=== PATIENT | female | born 1955 | race Caucasian/White ===

== ENCOUNTER 2023-08-16 14:05 | Outpatient (CLI) | payer OTHER, SELFPAY ==
--- NOTE | ~2023-08-16 | CT_ITS ---
EXAMINATION: CT lung screening DATE: 08/16/2023 14:32 INDICATION: Personal history of tobacco dependence TECHNIQUE: Computed tomography (CT) of the chest was performed without intravenous contrast. The dose -length product was 80.60 mGy-cm. Automated exposure control and iterative reconstruction technique w ere employed. COMPARISON: None FINDINGS: Heart size normal. No significant pleural or pericardial effusion. There is atherosclerosis . No thoracic lymphadenopathy. There are cholecystectomy clips. The upper abdomen is otherwise unrema rkable. No endobronchial lesions. No focal consolidation. No pneumothorax. Evaluation of the lung bas es limited due to motion artifact. No suspicious pulmonary nodules or masses. Elevated left diaphragm . Moderate thoracic spondylosis. No acute osseous abnormality. IMPRESSION: 1. Lung-RADS category 1: Negative. Continue annual screening with noncontrast low-dose chest CT in 12 months. Reviewed, dictated and finalized at location A. IMPRESSION: 1. Lung-RADS category 1: Negative. Continue annual screening with noncontrast l ow-dose chest CT in 12 months.
== END 2023-08-16 14:06 | disposition home or self-care (01) ==
LOC: ANHIMG 14:15
PROVIDERS: PCP Internal Medicine; Visit Provider Internal Medicine
DX: Z12.2 Encounter for screening for malignant neoplasm of respiratory organs (principal); Z87.891 Personal history of nicotine dependence
CPT/HCPCS: 71271

== ENCOUNTER 2024-10-13 14:31 | Outpatient (CLI) | payer OTHER, SELFPAY ==
--- NOTE | ~2024-10-13 | XR_ITS ---
EXAM: XR femur LT min 2V DATE: 10/13/2024 15:07 HISTORY: PAIN IN LEFT FEMUR . COMPARISON: None available. FINDINGS: Normal mineralization. No fracture or dislocation. No lytic or blastic lesion. Mild degene rative change in the left hip and left knee. Lumbar facet arthropathy. No erosion or periosteal pepper e. Soft tissues within normal limits. IMPRESSION: No acute osseous finding in the left femur. Reviewed, dictated and finalized at location K.
--- OUTSIDE RECORDS SUMMARY | 2024-10-13 14:36 | XMS_ITS | Patient Health Record ---
Author Organization [facility] Address [address] [place] [address] Care Team Providers Care Pick Pulling Machine Operator Name Role Phone Roman Bennett Unavailable [phone] REASON FOR REFERRAL No Information PROBLEMS Problem Type ICD Code Onset Dates Problem Status W/U Status Risk SNOMED Code Notes Problem Anxiety disorder, unspecified (F41.9) Active confirmed Anxiety disorde r (169810087) Problem Essential (primary) hypertension (I10) Active confirmed Essential hypertension (78765057) Problem Chronic fatigue, unspecified (R53.82) Active confirmed Chronic fatigue syndrome (disorder) (47569823) Problem Other proteinuria (R80.8) Active confirmed Proteinuria (27123486) Problem Chronic kidney disease, stage 3 unspecified (N18.30) Active confirmed Chronic kidney disease stage 3 (disorder) (175859808) Encounters Encounter Location Date Provider Diagnosis [facility] [address] [place] [address] 11/02/2023 Roman Bennett Chronic kidney disease, stage 3 unspecified N18.30 ; Anxiety disorder, unspecified F41.9 ; Chronic fatigue, unspecified R53.82 ; Essential (primary) hypertension I10 and Other proteinuria R80.8 [facility] [address] [place] [address] 02/27/2024 Roman Bennett Chronic kidney disease, stage 3 unspecified N18.30 ; Anxiety disorder, unspecified F41.9 ; Chronic fatigue, unspecified R53.82 ; Essential (primary) hypertension I10 and Other proteinuria R80.8 [facility] [address] [place] [address] 03/19/2024 Roman Bennett [facility] [address] [place] [address] 11/02/2023 Roman Bennett ASSESSMENTS Encounter Date Diagnosis Assessment Notes Treatment Notes Treatment Clinical Notes Section Notes 11/02/2023 Chronic kidney disease, stage 3 unspecified (ICD-10 - N18.30) 02/27/2024 Chronic kidney disease, stage 3 unspecified (ICD-10 - N18.30) 02/27/2024 Anxiety disorder, unspecified (ICD-10 - F41.9) 11/02/2023 Anxiety disorder, unspecified (ICD-10 - F41.9) 11/02/2023 Chronic fatigue, unspecified (ICD-10 - R53.82) 02/27/2024 Chronic fatigue, unspecified (ICD-10 - R53.82) 02/27/2024 Essential (primary) hypertension (ICD-10 - I10) 11/02/2023 Essential (primary) hypertension (ICD-10 - I10) 11/02/2023 Other proteinuria (ICD-10 - R80.8) 02/27/2024 Other proteinuria (ICD-10 - R80.8) PLAN OF TREATMENT Next Appt Details Provider Name:Roman Bennett , 11/14/2024 01:15:00 PM, [address], [facility] [address], [place], [address],
--- OUTSIDE RECORDS SUMMARY | 2024-10-13 14:36 | XMS_ITS ---
Author Organization [facility] Address [address] [place] [address] Care Team Providers Care Construction Safety Consultant Name Role Phone Donald Roman Unavailable [phone] Encounters Encounter Location Date Provider Diagnosis [facility] [address] [facility] [address] [place] [address] 02/27/2024 Roman Bennett Chronic kidney disease, stage 3 unspecified N18.30 ; Anxiety disorder, unspecified F41.9 ; Chronic fatigue, unspecified R53.82 ; Essential (primary) hypertension I10 and Other proteinuria R80.8 ASSESSMENTS Encounter Date Diagnosis Assessment Notes Treatment Notes Treatment Clinical Notes Section Notes 02/27/2024 Chronic kidney disease, stage 3 unspecified (ICD-10 - N18.30) 02/27/2024 Anxiety disorder, unspecified (ICD-10 - F41.9) 02/27/2024 Chronic fatigue, unspecified (ICD-10 - R53.82) 02/27/2024 Essential (primary) hypertension (ICD-10 - I10) 02/27/2024 Other proteinuria (ICD-10 - R80.8) PLAN OF TREATMENT Next Appt Details Provider Name:Roman Donald , 11/14/2024 01:15:00 PM, [address] [facility], [address], [place], [address], Progress Notes * Heaven MONTOYADOB:1955 ([age] yo F)Acc No.[id number]:02/27/2024 Progress Notes Patient: Heaven MONTOYA Provider: MD KARAN, F.A.C.P, F.A.S.N. :1955 Age:68 Y Sex:Female Date:02/27/2024 Address:[address] [place] [address] [address], [place] [address] Subjective: * Chief Complaints: * * Medical History: Objective: Assessment: * Assessment: 1. Chronic kidney disease, stage 3 unspecified - N18.30 (Primary) 2. Anxiety disorder, unspecified - F41.9 3. Chronic fatigue, unspecified - R53.82 4. Essential (primary) hypertension - I10 5. Other proteinuria - R80.8 Plan: * Treatment: * Billing Information: * Visit Code: * Procedure Codes: * Sign off status: Pending * Provider: MD KARAN, F.A.C.P, F.A.S.N. Date: 02/27/2024
--- OUTSIDE RECORDS SUMMARY | 2024-10-13 14:36 | XMS_ITS ---
Author Organization [facility] Address [address] [place] [address] [place] [address] Care Team Providers Care Drawer In Plain Loom Name Role Phone Roman Bennett Unavailable [phone] MEDICATIONS Medication SIG (Take, Route, Frequency, Duration) Notes Start Date End Date Status Calcitriol 0.25 MCG 1 capsule Orally Onc e a day for 90 day(s) 11/02/2023 07/28/2024 Active Ergocalciferol 1.25 MG (35487 UT) 1 capsule Orally Once a week for 90 day(s) 11/02/2023 07/28/2024 Active Encounters Encounter Location Date Provider Diagnosis [facility] [address] [facility] [address] [place] [address] 11/02/2023 Roman Bennett PLAN OF TREATMENT Medication Medication Name Sig Start Date Stop Date Notes Calcitriol 0.25 MCG 1 capsule Orally Onc e a day for 90 day(s) 11/02/2023 07/28/2024 Ergocalciferol 1.25 MG (5000 0 UT) 1 capsule Orally Once a week for 90 day(s) 11/02/2023 07/28/2024 Next Appt Details Provider Name:Roman Bennett , 11/14/2024 01:15:00 PM, [address] [facility], [facility] [address], [place], [address], Progress Notes * Heaven MONTOYADOB:1955 ([age] yo F)Acc No.[id number]:11/02/2023 Patient: Heaven MONTOYA :1955 Age:68 Y Sex:Female Address:[address], [place] [address] * Refills Start Ergocalciferol Capsule, 1.25 MG (37539 UT), Orally, 13, 1 capsule, Once a week, 90 day(s), Refills=2 Start Calcitriol Capsule, 0.25 MCG, Orally, 90 Capsule, 1 capsule, Once a day, 90 day(s), Refills=2 * true * Date:
--- OUTSIDE RECORDS SUMMARY | 2024-10-13 14:37 | XMS_ITS ---
Author Organization [facility] Address [address] [facility] [address] [facility] [address] [place] [address] Care Team Providers Care Customs Director Name Role Phone Roman Bennett Unavailable [phone] Encounters Encounter Location Date Provider Diagnosis [facility] [address] [facility] [address] [place] [address] 03/19/2024 Roman Bennett PLAN OF TREATMENT Next Appt Details Provider Name:Roman Donald , 11/14/2024 01:15:00 PM, [address] [facility], [facility] [place] [address], [place], [address], Progress Notes * Heaven MONTOYADOB:1955 ([age] yo F)Acc No.[id number]:03/19/2024 Progress Notes Patient: Heaven MONTOYA Provider: MD KARAN, Jania.Nikole.C.P, F.A.S.N. :1955 Age:68 Y Sex:Female Date:03/19/2024 Address:[address] [place] [address] [address], [place] [address] Subjective: * Chief Complaints: * * Medical History: Objective: Assessment: Plan: * Treatment: * Billing Information: * Visit Code: * Procedure Codes: * Sign off status: Pending * Provider: MD KARAN, Jania.Nikole.C.P, F.A.S.N. Date: 03/19/2024
--- OUTSIDE RECORDS SUMMARY | 2024-10-13 14:37 | XMS_ITS | Data Portability ---
Author Organization [facility] Dykes Address [address] [place] [address] Assessment Encounter Date Assessment Date Assessment LastModified by Organization Details LastModified Time 10/23/2023 10/23/2023 Discussed with patients family that since she is over [age] and has not had a PAP since in her twenties and it may be traumatic for her, it is probably not necessary to do any further PAPs. Will discuss further at follow up. [email or web address] Not available 10/26/2023 09:03:17 01/22/2024 01/22/2024 Does not need to continue aspirin. No history of heart disease or PVD. [email or web address] Not available 01/22/2024 18:16:05 Plan of Treatment Reminders Order Date Submit Date Provider Last Modified By Organization Details Last Modified Time Details Appointments ANY 2024 11:30A M Roxanne Anderson MD Not available Not available Not available ANY 2024 11:00A M Roxanne Anderson MD Not available Not available Not available Lab TSH, ultra-sen sitive, serum 2024 025 [place] [facility], [address] [facility], [address], [place], [address], 10/09/2024 09:55:27 influenza virus A + B + SARS-CoV- 2 (COVID19) Ag panel, rapid IA, upper respirato ry specimen 2024 025 [email or web address] In-Office Order, Internal Use Only DO Not Attach Compendium DO Not Attach Compendium, Do Not Delete/merge, [id number] 07/14/2024 18:59:47 lipid panel, serum 2023 024 [facility], [address], [place], [address], 10/07/2024 09:29:28 TSH, ultra-sen sitive, serum 2023 024 [facility], [address], [address], [place], [address], 07/11/2024 11:13:57 noninvasi ve colorecta l cancer DNA + occult blood screening , QL, stool 2023 024 [facility] (Cologuard Orders Only), [address], [address], [place], [address], 10/26/2023 09:04:57 CMP, serum or plasma 2023 024 [facility], [address], [address], [place], [address], 07/08/2024 14:08:31 lipid panel, serum 2023 024 [facility], [address], [place], [address], 07/08/2024 14:08:31 CBC 2023 024 [facility], [address], [address], [place], [address], 07/08/2024 14:08:31 albumin/c reatinine , mass ratio, urine 2023 024 [facility], [address], [address], [place], [address], 07/08/2024 14:08:31 Referral None recorded. Procedures None recorded. Surgeries None recorded. Imaging XR, femur 2024 025 [facility], [address] [place], [address], 10/08/2024 13:23:55 LDCT, chest, for lung cancer screening 2024 025 [facility], [address] [place], [address], 10/10/2024 08:43:22 XR, hip, unilatera l 2023 024 [facility], [address] [place], [address], 03/17/2024 15:59:20 home sleep study 2023 024 [facility], [address] [place], [address], 01/31/2024 09:13:26 Medication Orders Debrox 6.5 % ear drops 2024 025 [facility] #98393, [address], [place], [place], [id number], 10/08/2024 12:11:56 Zithromax Z-Jose G 250 mg tablet 2024 025 [facility] #48373, [address], [place], [place], [id number], 10/08/2024 12:11:54 citalopra m 40 mg tablet 2024 025 [facility] #90570, [address], [place], [place], [id number], 06/30/2024 18:50:33 losartan 50 mg tablet 2024 025 [facility] #12446, [address], [place], [place], [id number], 06/30/2024 18:50:33 Symbicort 160 mcg-4.5 mcg/actua tion HFA aerosol inhaler 2024 025 [facility] #67189, [address], [place], [place], [id number], 06/30/2024 18:50:32 albuterol sulfate HFA 90 mcg/actua tion aerosol inhaler 2024 025 [facility] #66180, [address], [place], [place], [id number], 06/30/2024 18:52:32 pravastat in 40 mg tablet 2024 025 [facility] #12214, [address], [place], [place], [id number], 07/14/2024 12:20:53 fenofibra te 54 mg tablet 2024 025 [facility] #82515, [address], [place], [place], [id number], 06/30/2024 18:52:33 fenofibra te 54 mg tablet 2023 024 [facility] #58908, [address], [place], [place], [id number], 01/22/2024 18:24:36 pravastat in 40 mg tablet 2023 024 [email or web address] #40637, [address], [place], [place], [id number], 07/14/2024 12:20:34 albuterol sulfate HFA 90 mcg/actua tion aerosol inhaler 2023 024 [facility] #82009, [address], [place], [place], [id number], 01/22/2024 18:24:37 Symbicort 160 mcg-4.5 mcg/actua tion HFA aerosol inhaler 2023 024 [facility] #48587, [address], [place], [place], [id number], 01/22/2024 18:24:37 losartan 50 mg tablet 2023 [facility] #71971, [address], [place], [place], [id number], 01/22/2024 18:24:40 citalopra m 40 mg tablet 2023 024 [facility] #51917, [address], [place], [place], [id number], 01/22/2024 18:24:39 levothyro xine 137 mcg tablet 2023 024 [facility] #30393, [address], [place], [place], [id number], 01/22/2024 18:24:36 albuterol sulfate 2.5 mg/3 mL (0.083 %) solution for nebulizat ion 2023 024 [facility] #96061, [address], [place], [place], [id number], 10/26/2023 09:04:53 albuterol sulfate HFA 90 mcg/actua tion aerosol inhaler 2023 024 [facility] #52126, [address], [id number], 10/26/2023 09:04:54 Symbicort 160 mcg-4.5 mcg/actua tion HFA aerosol inhaler 2023 024 [facility] #24146, [address], [place], [place], [id number], 10/26/2023 09:04:52 fenofibra te 54 mg tablet 2023 024 [facility] #60272, [address], [place], [place], [id number], 10/26/2023 09:04:50 losartan 50 mg tablet 2023 024 [facility] #05870, [address], [place], [place], [id number], 10/26/2023 09:04:54 citalopra m 40 mg tablet 2023 024 [facility] #78099, [address], [place], [place], [id number], 10/26/2023 09:04:53 Patient TargetsNo targets recorded. Patient Instructions Encounter Date Encounter Id Patient Instructions Last Modified By Organization Details Last Modified Time 10/23/2023 [id number] A healthy lifestyle: care instructions monalisa Not available 10/26/2023 09:04:41 Reason for Referral None Reported. Results Created Date Observation Date Name Description Value Unit Range Abnormal Flag Note LastModifiedBy Organization Detail LastModifiedTime 07/08/19 25 07/08/2024 LIPID PANEL cholesterol, total 199 mg/dL 100-19 9 Not Available [facility] [address] [place], [address], 2024 06:20:28 07/08/19 25 07/08/2024 LIPID PANEL triglyceride s 184 mg/dL 0-149 above high normal Not Available [facility] [address] [place], [address], 2024 06:20:28 07/08/19 25 07/08/2024 LIPID PANEL HDL cholesterol 46 mg/dL 40-999 Not Available [facility] [address] [place], [address], 2024 06:20:28 07/08/19 25 07/08/2024 LIPID PANEL VLDL cholesterol any 37 mg/dL 5-40 Not Available [facility] [address] [place], [address], 2024 06:20:28 07/08/19 25 07/08/2024 LIPID PANEL LDL chol calc (nih) 142 mg/dL 0-99 above high normal Not Available [facility] [address] [place], [address], 2024 06:20:28 07/08/19 25 07/08/2024 COMP. METAB OLIC PANEL (14) glucose 88 mg/dL 70-99 Not Available [facility] [address] [place], [address], 2024 06:20:29 07/08/19 25 07/08/2024 COMP. METAB OLIC PANEL (14) BUN 16 mg/dL 8-27 Not Available [facility] [address] [place], [address], 2024 06:20:29 07/08/19 25 07/08/2024 COMP. METAB OLIC PANEL (14) creatinine 1.04 mg/dL 0.76-1 .27 Not Available [facility] [address] [place], [address], 2024 06:20:29 07/08/19 25 07/08/2024 COMP. METAB OLIC PANEL (14) eGFR 59 >=60 below low normal Units for eGFR value s are mL/mi n/1.7 3 The eGFR Calcu latio n has not been valid ated for patie nts under the age of 18. If test resul ts are displ ayed for a patie nt under the age of 18, disre khushbu that value . Not Available [facility] [address] [place] [address], [address], 2024 06:20:29 07/08/19 25 07/08/2024 COMP. METAB OLIC PANEL (14) BUN/creatini ne ratio 15 10-28 Not Available [facility] [address] [place] [address], [address], 2024 06:20:29 07/08/19 25 07/08/2024 COMP. METAB OLIC PANEL (14) sodium 139 mmol/ L 134-14 4 Not Available [facility] [address] [place] [address], [address], 2024 06:20:29 07/08/19 25 07/08/2024 COMP. METAB OLIC PANEL (14) potassium 4.9 mmol/ L 3.5-5. 2 Not Available [facility] [address] [place] [address], [address], 2024 06:20:29 07/08/19 25 07/08/2024 COMP. METAB OLIC PANEL (14) chloride 102 mmol/ L 96-106 Not Available [facility] [address] [place] [address], [address], 2024 06:20:29 07/08/19 25 07/08/2024 COMP. METAB OLIC PANEL (14) carbon dioxide, total 27 mmol/ L 20-29 Not Available [facility] [address] [place] [address], [address], 2024 06:20:29 07/08/19 25 07/08/2024 COMP. METAB OLIC PANEL (14) calcium 9.7 mg/dL 8.7-10 .3 Not Available [facility] [address] [place], [address], 2024 06:20:29 07/08/19 25 07/08/2024 COMP. METAB OLIC PANEL (14) protein, total 6.7 g/dL 6.0-8. 5 Not Available [facility] [address] [place], [address], 2024 06:20:29 07/08/19 25 07/08/2024 COMP. METAB OLIC PANEL (14) albumin 4.2 g/dL 3.8-4. 8 Not Available [facility] [address] [place], [address], 2024 06:20:29 07/08/19 25 07/08/2024 COMP. METAB OLIC PANEL (14) globulin, total 2.5 g/dL 1.5-4. 5 Not Available [facility] [address] [place], [address], 2024 06:20:29 07/08/19 25 07/08/2024 COMP. METAB OLIC PANEL (14) A/G ratio 2.0 1.2-2. 2 Not Available [facility] [address] [place], [address], 2024 06:20:29 07/08/19 25 07/08/2024 COMP. METAB OLIC PANEL (14) bilirubin, total 0.5 mg/dL 0.0-1. 2 Not Available [facility] [address] [place], [address], 2024 06:20:29 07/08/19 25 07/08/2024 COMP. METAB OLIC PANEL (14) alkaline phosphatase 63 IU/L 44-121 Not Available [facility] [address] [place], [address], 2024 06:20:29 07/08/19 25 07/08/2024 COMP. METAB OLIC PANEL (14) AST (SGOT) 16 IU/L 0-40 Not Available [facility] [address] [place], [address], 2024 06:20:29 07/08/19 25 07/08/2024 COMP. METAB OLIC PANEL (14) ALT (SGPT) 10 IU/L 0-32 Not Available [facility] [address] [place], [address], 2024 06:20:29 07/08/19 25 2024 HEMOG LOBIN A1C hemoglobin A1C 5.7 % 4.8-5. 6 above high normal Predi abete s: 5.7 - 6.4 Diabe pancho: >6.4 Glyce nirmala contr ol for adult s with diabe pancho: <7.0 Not Available [facility] ([facility]) [address] [place], [address], 2024 07:15:00 07/14/19 25 07/15/2024 ALBUM IN/CR EATIN INE RATIO ,URIN E creatinine, urine 66.3 mg/dL notest ab. Not Available [facility] ([facility]) [address] [place], [address], 07/15/2024 11:14:27 07/14/19 25 07/15/2024 ALBUM IN/CR EATIN INE RATIO ,URIN E albumin, urine <3.0 ug/mL notest ab. Not Available [facility] ([facility]) [address] [place], [address], 07/15/2024 11:14:27 07/14/19 25 07/15/2024 ALBUM IN/CR EATIN INE RATIO ,URIN E alb/creat ratio <5 Chanell l: 0 - 29 Moder ately incre ased: 30 - 300 Sever austen incre ased: >300 Not Available [facility] ([facility]) [address] [facility], [place], [address], 07/15/2024 11:14:27 07/14/19 25 07/14/2024 influ eileen virus A + B + SARS- CoV-2 (COVI D19) Ag panel , rapid IA, upper respi rator y speci men Flu A negati ve Not Available In-Office Order Internal Use Only DO Not Attach Compendium DO Not Attach Compendium, Do Not Delete/merge, [id number] 07/14/2024 15:33:28 07/14/19 25 07/14/2024 influ eileen virus A + B + SARS- CoV-2 (COVI D19) Ag panel , rapid IA, upper respi rator y speci men Flu B negati ve Not Available In-Office Order Internal Use Only DO Not Attach Compendium DO Not Attach Compendium, Do Not Delete/merge, [id number] 07/14/2024 15:33:28 07/14/19 25 07/14/2024 influ eileen virus A + B + SARS- CoV-2 (COVI D19) Ag panel , rapid IA, upper respi rator y speci men Rapid SARS CoV 2 Ag, QL IA, respiratory specimen negati ve Not Available In-Office Order Internal Use Only DO Not Attach Compendium DO Not Attach Compendium, Do Not Delete/merge, [id number] 07/14/2024 15:33:28 01/24/20 24 01/22/2024 home sleep study No observ ation record ed. [facility] [address] [place], [address], 01/25/2024 13:43:43 03/17/20 24 03/17/2024 XR, hip, unila teral No observ ation record ed. [facility] [address] [place], [address], 04/07/2024 16:07:15 05/19/20 24 05/14/2024 home sleep study No observ ation record ed. [facility] [address] [place], [address], 05/27/2024 12:24:20 Result Notes None recorded. Problems Name Problem SNOMED Code Status Onset Date Resolution Date Notes Provider Name and Address Organization Details Recorded Time Administra tion of pneumococc al vaccine Active 2017 Not Available [facility] 4 14:51:11 Hand pain 82417218 Active 2017 Not Available [facility] 4 14:51:11 Serum creatinine outside reference range 233908909 Active 2018 Not Available [facility] 4 14:51:11 Multiple skin tags 775641886 Active 2018 Not Available [facility] 4 14:51:11 Leukocytes in urine 491515677 Active 2018 Not Available [facility] 4 14:51:11 Acute urinary tract infection 085780491 Active 2018 Not Available [facility] 4 14:51:11 Dysuria 43274355 Active 2019 Not Available [facility] 4 14:51:11 Neck pain 17461450 Active 2021 Not Available [facility] 4 14:51:11 Screening for malignant neoplasm of colon Active 2021 Not Available [facility] 4 14:51:11 Hypothyroi dism 53056659 Active Not Available [facility] 4 14:51:11 Hyperlipid emia 45117898 Active Not Available [facility] 4 14:51:11 Pain of shoulder region 14883647 Active Not Available [facility] 4 14:51:11 Vitamin D deficiency 07312445 Active Not Available [facility] 4 14:51:11 Tobacco user 611499646 Active Not Available [facility] 4 14:51:11 Disorder of vitamin B12 228214085 Active Not Available [facility] 4 14:51:11 Chronic obstructiv e pulmonary disease 37996479 Active Not Available [facility] 4 14:51:11 Urinary incontinen ce 901083162 Active Not Available [facility] 4 14:51:11 Essential hypertensi on 30014994 Active Not Available [facility] 4 14:51:11 Morphea 698281977 Active Not Available [facility] 4 14:51:11 Depressive disorder 13445019 Active Not Available [facility] 4 14:51:11 Impacted cerumen in right ear 0684242462235 103 Active 2016 Not Available [facility] 4 14:51:11 Administra tion of influenza vaccine Active 2016 Not Available [facility] 4 14:51:12 Acute bronchitis 42049459 Active 2016 Not Available [facility] 4 14:51:11 Otitis media 16324419 Active 2016 Not Available [facility] 4 14:51:11 Impacted cerumen in left ear 2573153474484 101 Active 2016 Not Available [facility] 4 14:51:11 Problem Notes None recorded. Procedures Surgical History None recorded. Imaging Results Imaging Date Name Status LastModified by Organiz ation Details LastModified Time 01/22/2024 home sleep study completed [facility] [address] [place], [address], 01/25/2024 13:43:43 03/17/2024 XR, hip, unilateral completed [facility] [address] [place], [address], 04/07/2024 16:07:15 05/14/2024 home sleep study completed [facility] [address] [place], [address], 05/27/2024 12:24:20 Procedure Notes None recorded. Medical Equipment None Reported. Allergies No known drug allergies Medications Name Sig Start Date Stop Date Status Note LastModified by Organization Details LastModified Time losartan 50 mg tablet TAKE 1 TABLET BY MOUTH EVERY DAY IN THE MORNING active Not Available Not Available No t Available cyclobenz aprine 10 mg tablet TAKE 1 TABLET BY MOUTH EVERY DAY AT BEDTIME 10/22 completed Not Available Not Available Not Available amoxicill in 500 mg capsule Take 1 capsule every 8 hours by oral route for 10 days. 01/03 completed Not Available Not Available Not Available promethaz ine-DM 6.25 mg-15 mg/5 mL oral syrup Take 5 mL 3 times a day by oral route as needed for 10 days. 08/16 completed Not Available Not Available Not Available levothyro xine 137 mcg tablet TAKE 1 TABLET BY MOUTH EVERY DAY active Not Available Not Available No t Available albuterol sulfate 2.5 mg/3 mL (0.083 %) solution for nebulizat ion USE 3 ML VIA NEBULIZE R THREE TIMES DAILY DIRECTED active Not Available Not Available No t Available citalopra m 40 mg tablet TAKE 1 TABLET BY MOUTH EVERY DAY active Not Available Not Available No t Available azithromy zoey 250 mg tablet TAKE 2 TABLETS BY MOUTH FOR 1 DAY THEN TAKE 1 TABLET BY MOUTH EVERY DAY FOR 4 DAYS 10/08 completed Not Available Not Available Not Available pravastat in 40 mg tablet TAKE 1 TABLET BY MOUTH EVERY DAY AT BEDTIME 07/14 completed increase d to 80mg Not Available Not Available Not Available fluconazo le 150 mg tablet Take 1 tablet 3 times a week by oral route for 7 days. 08/16 completed Not Available Not Available Not Available tretinoin 0.025 % topical cream 10/08 completed Not Available Not Available Not Available Debrox 6.5 % ear drops INSTILL 5 DROPS INTO AFFECTED EAR(S) BY OTIC ROUTE 2 TIMES PER DAY for a week 10/08 completed Not Available Not Available Not Available ciproflox acin 500 mg tablet Take 1 tablet every 12 hours by oral route for 10 days. 01/03 completed Not Available Not Available Not Available tramadol 50 mg tablet Take 1 tablet every day by oral route at bedtime for 30 days. 11/27 completed Not Available Not Available Not Available triamcino lone acetonide 0.1 % topical cream 11/27 completed Not Available Not Available Not Available amoxicill in 500 mg tablet Take 2 tablets twice a day by oral route for 10 days. 04/17 completed Not Available Not Available Not Available pravastat in 80 mg tablet TAKE 1 TABLET BY MOUTH EVERY DAY active Not Available Not Available No t Available baclofen 10 mg tablet Take 1 tablet 3 times a day by oral route as needed for 30 days. 03/31 completed Not Available Not Available Not Available levothyro xine 150 mcg tablet TAKE 1 TABLET BY MOUTH EVERY DAY 03/21 completed Not Available Not Available Not Available omeprazol e 20 mg capsule,d elayed release TAKE 1 CAPSULE BY MOUTH EVERY DAY active Not Available Not Available No t Available ergocalci ferol (vitamin D2) 1,250 mcg (50,000 unit) capsule TAKE 1 CAPSULE BY MOUTH 1 TIME A WEEK active Not Available Not Available No t Available albuterol sulfate HFA 90 mcg/actua tion aerosol inhaler INHALE 2 PUFFS BY MOUTH FOUR TIMES DAILY NEEDED active Not Available Not Available No t Available calcitrio l 0.25 mcg capsule TAKE 1 CAPSULE BY MOUTH DAILY active Not Available Not Available No t Available naproxen 500 mg tablet Take 1 tablet twice a day by oral route with meals for 30 days. 03/31 completed kidney impairme nt Not Available Not Available Not Available fenofibra te 160 mg tablet TAKE 1 TABLET BY MOUTH EVERY MORNING active Not Available Not Available No t Available Fish Oil active Not Available Not Avai lable Not Available Baby Aspirin 01/21 completed Not Available Not Available Not Available Symbicort 160 mcg-4.5 mcg/actua tion HFA aerosol inhaler INHALE 2 PUFFS BY MOUTH TWICE DAILY DIRECTED active Not Available Not Available No t Available diclofena c 1 % topical gel APPLY 2 GRAMS TO THE AFFECTED AREA FOUR TIMES DAILY 10/22 completed Not Available Not Available Not Available fenofibra te 54 mg tablet TAKE 1 TABLET BY MOUTH EVERY DAY active Not Available Not Available No t Available ProChambe r USE DIRECTED active Not Available Not Available No t Available vitamin D3 1,250 mcg (50,000 unit)-vit boothe K2 200 mcg capsule Take by oral route. 01/21 completed Not Available Not Available Not Available Flowflex COVID-19 Antigen Home Test kit TEST DIRECTED TODAY 08/19 completed Not Available Not Available Not Available Vitals Date Recorded Body height Body temperature Body mass index (BMI) Body weight Oxygen saturation Oxygen saturation in Arterial blood by Pulse oximetry Heart rate Respiratory rate Systolic blood pressure Diastolic blood pressure Provider Name and Address Organization Details Last Updated DateTime 4 168.91 cm 98.1 [degF] 25.9 kg/m2 25886.5 6 g 97 % 97 % 68 /min 16 /min 118 mm[Hg] 70 mm[Hg] Osiris Gray MA [facility] 4 15:54:20 Date Recorded Body height Body mass index (BMI) Body weight Oxygen saturation Oxygen saturation in Arterial blood by Pulse oximetry Heart rate Systolic blood pressure Diastolic blood pressure Provider Name and Address Organization Details Last Updated DateTime 4 168.91 cm 25.9 kg/m2 38222.5 6 g 98 % 98 % 71 /min 118 mm[Hg] 70 mm[Hg] Osiris Gray MA [facility] 4 15:03:18 Date Recorded Body height Body mass index (BMI) Body weight Body temperature Oxygen saturation Oxygen saturation in Arterial blood by Pulse oximetry Heart rate Systolic blood pressure Diastolic blood pressure Provider Name and Address Organization Details Last Updated DateTime 5 168.91 cm 25.9 kg/m2 35513.5 6 g 98.4 [degF] 99 % 99 % 72 /min 118 mm[Hg] 72 mm[Hg] Osiris Gray MA [facility] 5 12:13:10 Date Recorded Body height Body temperature Oxygen saturation Oxygen saturation in Arterial blood by Pulse oximetry Provider Name and Address Organization Details Last Updated DateTime 07/14/2024 168.91 cm 98.4 [degF] 96 % 96 % Monisha Field LPN [facility] 5 15:07:59 Date Recorded Body height Body mass index (BMI) Body weight Oxygen saturation Oxygen saturation in Arterial blood by Pulse oximetry Heart rate Body temperature Systolic blood pressure Diastolic blood pressure Provider Name and Address Organization Details Last Updated DateTime 5 168.91 cm 25.9 kg/m2 91056.5 6 g 98 % 98 % 71 /min 98.4 [degF] 118 mm[Hg] 70 mm[Hg] Osiris Gray MA [facility] 5 12:21:09 Social History Question Answer Notes LastModified by Organizat ion Details LastModified Time Tobacco Smoking Status Current Every Day Smoker cigarettes -- pack a day Ludwig Garcia MA null, [place] [facility] 09/03/2014 12:17:08 Are You Blind Or Do You Have Difficulty Seeing? No Information not available 03/08/2021 What Is Your Level Of Caffeine Consumption? Heavy Information not available 03/08/2021 Are You Deaf Or Do You Have Serious Difficulty Hearing? No Information not available 03/08/2021 What Type Of Diet Are You Following? REGULAR Information not available 03/08/2021 Are There Any Guns Present In Your Home? No Information not available 03/08/2021 What Was The Date Of Your Most Recent Tobacco Screening? 10/08/2024 Information not available 10/08/2024 How Many Children Do You Have? 1 Information not available 03/08/2021 What Is Your Relationship Status? Information not available 03/08/2021 Do You Use Your Seat Belt Or Car Seat Routinely? Yes Information not available 03/08/2021 Do You Have Smoke And Carbon Monoxide Detectors In Your Home? Yes Information not available 03/08/2021 Are You Passively Exposed To Smoke? Yes Information not available 03/08/2021 How Much Tobacco Do You Smoke? 1 PPD [email or web address] Information not available 02/12/2018 Has Tobacco Cessation Counseling Been Provided? Yes Information not available 05/08/2022 On What Date Was Tobacco Cessation Counseling Provided? 10/08/2024 Information not available 10/08/2024 How Many Years Have You Smoked Tobacco? 44 [email or web address] Information not available 09/03/2014 Sex: Female Functional Status Question Answer Note LastModified by Organization D etails LastModified Time What is your level of alcohol consumption? None Information not available 03/08/2021 Are you currently employed? No Information not available 03/08/2021 Are you able to care for yourself? Yes Information n ot available 03/08/2021 What is your exercise level? None Information not available 03/08/2021 Mental Status Question Answer Note LastModified by Organization D etails LastModified Time Do you feel stressed (tense, restless, nervous, or anxious, or unable to sleep at night)? [id number] [email or web address] Information not available 03/21/2023 Family History Relationship Description Onset Age of this Age Resolved Age Notes LastModified by Organization Details LastModified Time Mother Diabetes mellitus [email or web address] Not available 2014 12:20:25 Mother Disorder of thyroid gland [email or web address] Not available 2014 12:20:25 Mother Hypertensive disorder [email or web address] Not available 2014 12:20:25 Mother Hypercholest erolemia [email or web address] Not available 2014 12:20:25 Father Suspected malignant neoplasm of urinary bladder [email or web address] Not available 2014 12:20:25 Medical History Condition Response Thyroid Problems Y COPD Y Gynecological HistoryNo gynecological history recorded. Obstetrics History GPAL:G 0 P 0 0 0 0 Immunizations Vaccine Type Date Status Note Provider Nam e and Address Organization Details Recorded Time COVID-19, mRNA, LNP-S, PF, 30 mcg/0.3 mL dose 1 completed Not Available [facility] 06/27/2023 14:51:12 COVID-19, mRNA, LNP-S, PF, 30 mcg/0.3 mL dose 1 completed Not Available [facility] 06/27/2023 14:51:12 Influenza, split virus, quadrivalent, preservative 0 completed Not Available [facility] 06/27/2023 14:51:12 Influenza, split virus, quadrivalent, preservative 1 completed Not Available [facility] 06/27/2023 14:51:12 COVID-19, mRNA, LNP-S, PF, 100 mcg/0.5mL dose or 50 mcg/0.25mL dose 1 completed Not Available [facility] 06/27/2023 14:51:12 Influenza, split virus, quadrivalent, preservative 6 completed Not Available [facility] 06/21/2019 02:32:32 Influenza, MDCK, quadrivalent, PF 2 completed Not Available [facility] 10/08/2024 12:11:08 Influenza, high-dose, quadrivalent, PF 3 completed Not Available [facility] 10/08/2024 12:11:08 Pneumococcal conjugate PCV20, polysaccharide XHL052 conjugate, adjuvant, PF 3 completed Not Available [facility] 10/08/2024 12:11:08 Influenza, split virus, quadrivalent, preservative 7 completed Not Available [facility] 06/21/2019 02:33:59 Influenza, split virus, quadrivalent, PF 8 completed Not Available [facility] 06/21/2019 02:36:56 pneumococcal polysaccharide PPV23 8 completed Not Available [facility] 06/21/2019 02:39:48 Influenza, split virus, quadrivalent, preservative 9 completed Not Available [facility] 06/21/2019 02:38:43 Influenza, split virus, quadrivalent, preservative 5 completed Not Available [facility] 06/21/2019 02:39:22 Past Encounters Encounter ID Performer Location Encounter Start Date Encounter Closed Date Diagnosis/Indication Diagnosis SNOMED-CT Code Diagnosis ICD10 Code Diagnosis Note [id number] OBEY Braun (Adult Med) [address] [place] [address] [phone] 0 09/03/2014 11:45:21 09/03/2014 14:39:11 Hypothyroidism 74957359 Hyperlipidemia 06101098 Pain of [facility] 46269108 Vitamin D deficiency 75890921 Tobacco user 440058017 Disorder o f vitamin B12 453896149 Chronic ob structive pulmonary disease 44405025 Urinary incontinence 629360882 Essential hypertension 16047331 Morphea 948050681 [id number] OBEY Braun (Adult Med) [address] [place] [address] 59442-445 0 12/03/2014 11:43:24 12/03/2014 12:44:12 Urinary incontinence 328145021 Chronic ob structive pulmonary disease 16266449 Depressive disorder 61383929 Disorder o f vitamin B12 007285055 Essential hypertension 41457403 Hyperlipidemia 23109428 Hypothyroidism 69706992 Morphea 797967610 Pain of [facility] 30876491 Tobacco user 366139418 Vitamin D deficiency 11565137 [id number] OBEY Braun (Adult Med) [address] [place] [address] 73339-599 0 03/16/2015 11:14:29 03/16/2015 12:09:58 Active or passive immunization 011023869 Z23 Chronic ob structive pulmonary disease 44672184 J44.9 Depressive disorder 3548 9007 F32.9 Disorder o f vitamin B12 961253205 D51.1 Essential hypertension 05952030 I10 Hyperlipidemia 44337548 E78.5 Hypothyroidism 12091328 E03.9 Morphea 276398327 L94.0 Tobacco user 579113466 Z 72.0 Vitamin D deficiency 347 39835 E55.9 [id number] OBE[facility] Braun (Adult Med) [address] [place] [address] [phone] 0 09/14/2015 11:21:02 09/14/2015 12:04:19 Hypothyroidism 32832102 E03.9 Hyperlipidemia 60475258 E78.5 Essential hypertension 27245684 I10 Disorder o f vitamin B12 182914050 D51.1 Depressive disorder 3548 9007 F32.9 Chronic ob structive pulmonary disease 46514107 J44.9 Morphea 283085541 L94.0 Pain of [facility] 48636077 M25.519 Tobacco user 164809401 Z 72.0 Urinary incontinence 165 825771 R32 [id number] MD [facility] Carranza (Adult Med) [address] [place] [address] [id number] 0 03/14/2016 11:43:16 03/14/2016 12:59:37 Pain of shoulder region 69712897 M25.519 Vitamin D deficiency 347 75650 E55.9 Tobacco user 365858658 Z 72.0 Administra tion of influenza vaccine 84098698 Z23 Morphea 868896357 L94.0 Hypothyroidism 14361878 E03.9 Hyperlipidemia 12745277 E78.5 Essential hypertension 30806046 I10 Disorder o f vitamin B12 153977872 D51.1 Depressive disorder 3548 9007 F32.9 Chronic ob structive pulmonary disease 51017126 J44.9 Family his tory of diabetes mellitus 923318313 Z83.3 [id number] MD Maame Carranza (Adult Med) [address] [place], [place] [phone] 0 08/21/2016 15:13:44 08/21/2016 16:58:20 Vitamin D deficiency 19179718 E55.9 Hypothyroidism 16500212 E03.9 Hyperlipidemia 06429839 E78.5 Essential hypertension 19012333 I10 Chronic ob structive pulmonary disease 36949253 J44.9 Depressive disorder 3548 9007 F32.9 [id number] MD Maame Carranza (Adult Med) [address] [place] [address] [id number] 0 02/20/2017 11:38:28 02/20/2017 13:56:11 Impacted cerumen in right ear 1902958778 417298 H61.21 Tobacco user 865415215 Z 72.0 Chronic ob structive pulmonary disease 55102925 J44.9 Vitamin D deficiency 347 47493 E55.9 Depressive disorder 3548 9007 F32.9 Disorder o f vitamin B12 536958115 D51.1 Hypothyroidism 51855570 E03.9 Pain of [facility] 86320056 M25.519 Hyperlipidemia 50617338 E78.5 Essential hypertension 39952508 I10 Administra tion of influenza vaccine 47919863 Z23 [id number] MD Maame Carranza (Adult Med) [address] [place] [address] [id number] 0 03/22/2017 15:14:08 03/26/2017 09:06:25 Otitis media 73008469 H66.93 Impacted c erumen in right ear 6240421369 239270 H61.21 Impacted c erumen in left ear 5296897146 876210 H61.22 [id number] MD [facility]ame Carranza (Adult Med) [address] [place] [address] [id number] 0 08/16/2017 11:04:26 08/16/2017 12:14:55 Tobacco user 257968194 Z72.0 Vitamin D deficiency 347 26514 E55.9 Disorder o f vitamin B12 615558924 D51.1 Hypothyroidism 67188218 E03.9 Hyperlipidemia 45168464 E78.5 Essential hypertension 88490335 I10 Morphea 115161718 L94.0 [id number] MD Maame Carranza (Adult Med) [address] [place] [address] [id number] 0 02/12/2018 11:43:30 02/12/2018 13:57:32 Hypothyroidism 56689534 E03.9 Hyperlipidemia 36135236 E78.5 Essential hypertension 49234595 I10 Disorder o f vitamin B12 579731746 D51.1 Vitamin D deficiency 347 44644 E55.9 Morphea 717810108 L94.0 Chronic ob structive pulmonary disease 41167790 J44.9 Tobacco user 045954159 Z 72.0 Otitis media 19538325 H6 6.93 [id number] [facility] [address] [place] [address] 11200-905 0 04/17/2018 11:48:43 04/17/2018 13:44:00 Administration of influenza vaccine 37580275 Z23 Administra tion of pneumococcal vaccine 58756354 Z23 Hyperlipidemia 67382046 E78.5 Hypothyroidism 61954053 E03.9 Essential hypertension 25272093 I10 Pain of [place] 83997814 M25.519 Vitamin D deficiency 347 54594 E55.9 Morphea 295503475 L94.0 Chronic ob structive pulmonary disease 90700009 J44.9 Tobacco user 737959195 Z 72.0 Depressive disorder 3548 9007 F32.9 Hand pain 49547895 M79.6 [id number] Jennifer Rondon MD [facility] (Adult Med) [address] [place] [address] [id number] 0 09/05/2018 11:48:03 09/05/2018 13:18:12 Hand pain 79992885 M79.642 Hyperlipidemia 65286366 E78.5 Hypothyroidism 60757156 E03.9 Essential hypertension 75338089 I10 Pain of [place] 86648678 M25.519 Vitamin D deficiency 347 44807 E55.9 Disorder o f vitamin B12 427961681 D51.1 Tobacco user 940954746 Z 72.0 Chronic ob structive pulmonary disease 97695613 J44.9 Morphea 531030165 L94.0 Depressive disorder 3548 9007 F32.9 [id number] [facility] [address] [place] [address] [id number] 0 11/27/2018 11:49:49 11/27/2018 13:09:18 Chronic obstructive pulmonary disease 66078003 J44.9 Morphea 865194807 L94.0 Vitamin D deficiency 347 94528 E55.9 Depressive disorder 3548 9007 F32.9 Hypothyroidism 89327705 E03.9 Hyperlipidemia 67847735 E78.5 Essential hypertension 14146665 I10 Serum crea tinine outside reference range 469932554 R79.89 [id number] Jennifer Rondon MD [facility] (Adult Med) [address] [place] [address] [id number] 0 01/27/2019 11:44:22 01/28/2019 08:16:28 Essential hypertension 20794019 I10 Hyperlipidemia 74694188 E78.5 Hypothyroidism 28438779 E03.9 Disorder o f vitamin B12 014156109 D51.1 Depressive disorder 3548 9007 F32.9 Vitamin D deficiency 347 84250 E55.9 Morphea 761893080 L94.0 Chronic ob structive pulmonary disease 62756617 J44.9 Tobacco user 759757397 Z 72.0 Multiple skin tags 54498 7009 L91.8 face Hand pain 79389869 M79.6 42 [id number] Nazario Mario MD [facility] ([facility]) [address] [place] [address] 88231-869 2 03/25/2019 11:28:24 07/28/2019 11:12:03 Renal function tests outside reference range 576297242 R94.4 Has low eGFR reported, will evaluate further with tests as known due to the presence of risk factors Is a heavy tobacco user, may have poor circulatio n, loof for renal asymmetery Benign ess ential hypertension 0700094 I10 Keep less than 140/90 at least most of the time Tobacco user 556224232 Z 72.0 Advised to stop Hyperlipidemia 06883529 E78.5 Maintain control [id number] MD Maame Carranza (Adult Med) [address] [place] [address] [id number] 0 03/31/2019 11:29:27 03/31/2019 13:13:37 Essential hypertension 00005369 I10 Hyperlipidemia 85733390 E78.5 Hypothyroidism 61591876 E03.9 Vitamin D deficiency 347 36226 E55.9 Morphea 986695234 L94.0 Chronic ob structive pulmonary disease 72920389 J44.9 Administra tion of influenza vaccine 99334534 Z23 Serum crea tinine outside reference range 789770485 R79.89 [id number] MD Maame Carranza (Adult Med) [address] [place] [address] [id number] 0 05/12/2019 12:02:48 05/12/2019 13:39:27 Serum creatinine outside reference range 029368236 R79.89 Essential hypertension 07425569 I10 Leukocytes in urine 2757 74232 R82.79 Chronic ob structive pulmonary disease 44577633 J44.9 Depressive disorder 3548 9007 F32.9 Disorder o f vitamin B12 574912584 D51.1 Hyperlipidemia 21872729 E78.5 Hypothyroidism 15160297 E03.9 Vitamin D deficiency 347 32656 E55.9 [id number] Jennifer Rondon MD [facility] (Adult Med) [address] [place] [address] 63893-587 0 06/19/2019 11:41:41 06/19/2019 13:32:36 [id number] Jennifer Rondon MD [facility] (Adult Med) [address] [place] [address] [id number] 0 08/04/2019 11:46:48 08/05/2019 14:15:22 Vitamin D deficiency 09422253 E55.9 Dysuria 06768219 R30.9 Essential hypertension 37894252 I10 Hyperlipidemia 02383796 E78.5 Depressive disorder 3548 9007 F32.9 Hypothyroidism 32064717 E03.9 Chronic ob structive pulmonary disease 31113589 J44.9 Tobacco user 783787733 Z 72.0 Morphea 472881336 L94.0 [id number] Jennifer Rondon MD [facility] (Adult Med) [address] [place] [address] [phone] 0 01/15/2020 09:38:05 01/15/2020 11:41:41 Essential hypertension 14776919 I10 Hyperlipidemia 84176627 E78.5 Hypothyroidism 14575493 E03.9 Morphea 375788090 L94.0 Vitamin D deficiency 347 17975 E55.9 Depressive disorder 3548 9007 F32.9 Tobacco user 444566214 Z 72.0 Chronic ob structive pulmonary disease 93779287 J44.9 [id number] MD Maame Carranza (Adult Med) [address] [place] [address] [id number] 0 03/16/2020 08:21:24 03/16/2020 15:44:06 Hypothyroidism 83794313 E03.9 Depressive disorder 3548 9007 F32.9 Chronic ob structive pulmonary disease 88451967 J44.9 Hyperlipidemia 39679501 E78.5 Disorder o f vitamin B12 523637755 D51.1 Essential hypertension 53806492 I10 Morphea 336648274 L94.0 Tobacco user 468078024 Z 72.0 Vitamin D deficiency 347 44191 E55.9 [id number] OBEY Braun (Adult Med) [address] [place] [address] 52904-196 0 01/03/2021 14:51:39 01/03/2021 15:49:41 Chronic obstructive pulmonary disease 36112844 J44.9 Depressive disorder 3548 9007 F32.9 Essential hypertension 61877221 I10 Hyperlipidemia 94106731 E78.5 Hypothyroidism 18183138 E03.9 Morphea 364869925 L94.0 Tobacco user 247366483 Z 72.0 Vitamin D deficiency 347 56408 E55.9 [id number] MD Maame Carranza (Adult Med) [address] [place] [address] 55930-563 0 03/08/2021 08:01:32 03/08/2021 15:53:21 Chronic obstructive pulmonary disease 66384554 J44.9 Depressive disorder 3548 9007 F32.9 Disorder o f vitamin B12 246799561 D51.1 Essential hypertension 92468644 I10 Hyperlipidemia 91895327 E78.5 Hypothyroidism 73001223 E03.9 Morphea 253254898 L94.0 Tobacco user 558442672 Z 72.0 Vitamin D deficiency 347 61252 E55.9 [id number] MD Maame Carranza (Adult Med) [address] [place] [address] [phone] 0 09/27/2021 14:52:12 09/28/2021 13:58:06 Neck pain 33603805 M54.2 Screening for malignant neoplasm of colon 475909546 Z12.11 Essential hypertension 13646715 I10 Hyperlipidemia 96180375 E78.5 Hypothyroidism 93273383 E03.9 Chronic ob structive pulmonary disease 54816597 J44.9 Depressive disorder 3548 9007 F32.9 Disorder o f vitamin B12 912362791 D51.1 Morphea 573472533 L94.0 Vitamin D deficiency 347 59430 E55.9 [id number] Jennifer Rondon MD [facility] (Adult Med) [address] [place] [address] [id number] 0 10/27/2021 12:39:14 10/28/2021 08:54:05 Depressive disorder 47258711 F32.9 Essential hypertension 90642291 I10 Hyperlipidemia 70152003 E78.5 Hypothyroidism 65473217 E03.9 Tobacco user 363562237 Z 72.0 Chronic ob structive pulmonary disease 47793291 J44.9 Vitamin D deficiency 347 41325 E55.9 Morphea 665600881 L94.0 Disorder o f vitamin B12 384913236 D51.1 [id number] Jennifer Rondon MD [facility] (Adult Med) [address] [place] [address] [id number] 0 05/08/2022 15:57:34 05/09/2022 16:30:12 Smoker 39907003 F17.200 Advised her to quit smoking for he good health and financial reasons. Overweight 201779532 E66 .3 As 05-08-2022 , she has been advised to watch her diet, [id number], and keep the weight down. Chronic ob structive pulmonary disease 35453087 J44.9 Will refill inhalers. Family his tory of diabetes mellitus type 2 095795072 Z83.3 Will screen type 2 DM. Family his tory of Thyroid disorder 040976584 Z83.49 Will screen thyroid disorder. Dyslipidemia 868093208 E 78.5 Low animal fat diet, on fenofibrat e and pravastati n. Chronic anxiety 08753082 9 F41.9 Will refil med. also offer the referral of behavioral health Hyperlipidemia 49200330 E78.5 Low animal fat diet. Will refilled and check fasting lipid profile. Hypothyroidism 39961065 E03.9 Will refill med. Essential hypertension 35709378 I10 BP today 05-08-2022 . is 128/70. advised to stay on low salt diet, avoid ibuprofen or naproxen. or OTC decongesta nt if possible. Screening mammography 24 270484 Z12.31 She declines today 05-08-2022 . HIV screen ing declined 7848897042 58156 Z53.20 She refused today 05-08-2022 . Colon canc er screening declined 5280027928 9109 Z53.20 She refused today 05-08-2022 . Screening for malignant neoplasm of cervix 438069728 Z12.4 She refused today 22. Mammogram declined 76361 5004 Z53.20 She refused today 05-08-2022 . [id number] Jennifer Rondon MD [facility] (Adult Med) [address] [place] [address] 11/09/2022 14:24:44 11/10/2022 15:33:24 Essential hypertension 22026776 I10 BP today 05-08-2022 . is 128/70. advised to stay on low salt diet, avoid ibuprofen or naproxen. or OTC decongesta nt if possible. BP is well controlled ., , refill losartan. Hypothyroidism 75867030 E03.9 Will refill med. FT4 is elevated, normal TSH, will reduce the dose. Vitamin D deficiency 347 79540 E55.9 1.000 mg /day. Her B12 is normal, may D/C B12. Dyslipidemia 395757229 E 78.5 Low animal fat diet, on fenofibrat e and pravastati n. Chronic ob structive pulmonary disease 90454131 J44.9 Will refill inhalers. Smoker 04916294 F17.200 Advised her to quit smoking for he good health and financial reasons. She is aware of cigarettes can cause permanet emphysema, cance of lung, or throat, or mouth and other disese. Chronic anxiety 52214589 9 F41.9 Will refil med. also offer the referral of behavioral health Hyperlipidemia 18764502 E78.5 Low animal fat diet. Will refilled and check fasting lipid profile. Chronic ki dney disease 313929188 N18.9 eGFR has dropped to 51, has been referred to nephrologi , no special treatment offer they said, will monitor renal functions. ,Avoid NSAID, [id number] Jennifer Rondon MD [facility] (Adult Med) [address] [place] [address] 11256-531 0 03/21/2023 15:06:26 03/29/2023 16:22:58 Chronic obstructive pulmonary disease 92393020 J44.9 Will refill inhalers. Cigarette smoker 1369938 7 F17.210 1-2 PK/day for more than 30 years. Will screen PDCT, she agreed. She is aware of cigarettes can cause permanent emphysema. cancer of lung, or throat. and other disease. Hypothyroidism 99312870 E03.9 Will refill med. FT4 is elevated, normal TSH, will reduce the dose. On levothyrox in 137 MCG/day. Essential hypertension 83245162 I10 BP today 05-08-2022 . is 128/70. advised to stay on low salt diet, avoid ibuprofen or naproxen. or OTC decongesta nt if possible. BP is well controlled ., , refill losartan. 03-21-23, BP by 130/70 today. Skin lesion 57366984 L98 .9 spots on face and arms. wants dermatolog ist referral. Colon canc er screening declined 9931169149 9109 Z53.20 She refused today 05-08-2022 . and today 03-21-23. HIV screen ing declined 1298214488 70924 Z53.20 She refused today 05-08-2022 .And today 03-21-23. Influenza vaccination declined 781178435 Z28.21 She declined 03-21-23. [id number] MD [facility] (Adult Med) [address] [place] [address] 51163-235 0 06/21/2023 14:13:21 06/22/2023 15:58:18 Overweight 933824231 E66.3 As 05-08-2022 , she has been advised to watch her diet, [id number], and keep the weight down. Chronic ob structive pulmonary disease 28228877 J44.9 Will refill inhalers. Smoker 71674503 F17.200 Advised her to quit smoking for he good health and financial reasons. She is aware of cigarettes can cause permanet emphysema, cance of lung, or throat, or mouth and other disese. Smokes one pk/day for more than 30 years. Chronic ki dney disease 932625028 N18.9 eGFR has dropped to 51, has been referred to nephrologi st, no special treatment offer they said, will monitor renal functions. ,Avoid NSAID, [id number] MD [facility]ame Tran (Adult Med) [address] [place] [address] 79550-273 0 10/23/2023 15:27:33 10/26/2023 12:40:42 Chronic obstructive pulmonary disease 01596907 J44.9 Will order a spacer so she has an easier time with inhalers. Chronic anxiety 81722825 9 F41.9 Hyperlipidemia 39190787 E78.5 Will return for fasting blood wori. Essential hypertension 32812160 I10 Overweight 846196405 E66 .3 Screening for malignant neoplasm of colon 817087293 Z12.11 Agreeable to cologuard. Seborrheic keratosis 394 920598 L82.1 Seeing dermatolog ist. Advised her to use sun protection . [id number] MD [facility]ame Tran (Adult Med) [address] [place] [address] 30228-164 0 01/22/2024 14:52:21 01/29/2024 10:07:33 Pain of hip region 38063190 M25.559 Right hip pain. Will get xray. Hypothyroidism 37722389 E03.9 Had TSH checked by nephrologi and it was slightly low. Did not do free T4. Will repeat TSH with reflex to free T4. Hyperlipidemia 57619846 E78.5 Will return for fasting blood work and check lipid panel. Snoring 91621990 R06.83 Snores at night and wakes in distress. Will get home sleep study. Gastroesop hageal reflux disease without esophagitis 201084768 K21.9 Reflux symptoms. Will try Famotidine due to side effects with Omeprazole . Advised her to try to avoid caffeine. Chronic ob structive pulmonary disease 05204176 J44.9 Having a hard time using inhaler. Will order a spacer to see if that helps. Chronic anxiety 70210553 9 F41.9 Continue Citalopram .. Essential hypertension 67751093 I10 Blood pressure at goal today. Continue present medication . Chronic ki dney disease stage 3 365016723 N18.30 Followed by nephrologi . Taking Vitamin D and Calcium. Encouraged her to stay well hydrated and avoid Ibuprofen products. Sleep apnea 53936615 G47 .30 [id number] MD [facility] Tran (Adult Med) [address] [place] [address] 0 06/30/2024 11:49:13 07/02/2024 10:08:48 Hypothyroidism 08004820 E03.9 Last TSH in October of 2023 was slightly low. Need to repeat TSH. Will get blood work from Dr. Nelson and if TSH is not on there will order it. Essential hypertension 55073760 I10 Blood pressure at goal today. Continue present medication . Due for lipid. Last blood work done in October of 2023 was negative for protein in urine and chemistry panel showed sodium just slightly below normal and GFR slightly decreased at 51. [facility]. Chronic anxiety 46515722 9 F41.9 Continue Citalopram .. Hyperlipidemia 45765181 E78.5 Will get a copy of most recent blood work [facility] and see if had lipid profile done. If not will have her get it done. Chronic ob structive pulmonary disease 46051198 J44.9 Continue Symbicort. Dizziness 262134331 R42 Chronic dizziness with one episode of vertical double vision when she stepped outside into the bright sunlight when there was snow on the ground. This only lasted seconds. She said at times she feels dizzy when she is hungry and needs to eat something. She describes some dizzy episodes as vertiginou s and some are not. We spent some time discussing adequate hydration and food intake. Her sister was with her today and said she does not get near enough water intake and eats quite a bit of candy and sweets. We talked about how dehydratio n and too much sugar intake can cause dizziness. She is going to work on getting at least six glasses of water a day and decreasing carbohydra pancho in diet. She will follow up in three months and if her dizziness is not improving with these changes we will pursue further workup. Advised her to seek immediate medical attention if she has another episode of double vision or if her symptoms become worse. Chronic ki dney disease stage 3 318254650 N18.[address] Taking Vitamin D and Calcium. Encouraged her to stay well hydrated and avoid Ibuprofen products. Obstructiv e sleep apnea syndrome 35974686 G47.33 Going to the hospital for titration study. [id number] MD [facility]ame Tran (Adult Med) [address] [place] [phone] 07/14/2024 14:52:53 07/21/2024 13:32:35 Cough 50760135 R05.9 Acute exac erbation of chronic obstructive pulmonary disease 490146736 J44.1 It sounds like she started with viral symptoms and is now experienci ng a COPD exacerbati on. Will treat with a course of Zithromax. Advised her that she can use her Albuterol if needed. Told her to let me know if she is not improving in three to four days. Her sister asked how we know that she has COPD. I explained that sometimes that is put together but the patient's symptoms, but there is a breathing test called a pulmonary function test that can be done to give us a diagnoses. I don't see that one was done but it may just not be in her record. If it has not been done that is something we can do. Impacted c erumen of bilateral ears [id number] H61.23 Patient has bilateral cerumen impaction. Will send out drops to treat this. If cannot get this covered by insurance can try mineral oil and water. Avoid Hydrogen Peroxide. [id number] MD Maame Tran (Adult Med) [address] [place] [phone] 10/08/2024 12:09:52 10/09/2024 09:28:09 Tobacco dependence caused by cigarettes [id number] F17.210 Continue Symbicort. Due for LDCT. Serum thyr oxine level outside reference range 441247215 R79.89 Repeat TSH. Impacted c erumen in right ear [id number] 971645 H61.21 Will use Debrox for five to seven days to right ear before comes in for ear lavage. Tendinitis 68267631 M76. 31 Will send exercises for IT band. Pain in femur [id number] M89.8X5 Will get x-ray. Health Concerns Section Related Observation LastModified by Organization Kyle dewitt LastModified Time None Recorded Concern Status LastModified by Organization Details LastModified Time None Recorded Advance Directives Directive None Recorded Payers Encounter Date Sequence Insurance Name Policy Number Policy Clifford Covered Member ID Clifford Member ID Guarantor Name 10/23/2023 1 [facility] ON OR AFTER 12/02/20 (MEDICAID REPLACEMENT - HMO) Heaven Montoya [id number] Heaven Montoya 01/22/2024 1 [facility] ON OR AFTER 12/02/20 (MEDICAID REPLACEMENT - HMO) Heaven Montoya [id number] Heaven Jan 06/30/2024 1 [facility] ON OR AFTER 12/02/20 (MEDICAID REPLACEMENT - HMO) Heaven Montoya [id number] Heaven Montoya 07/14/2024 1 [facility] ON OR AFTER 12/02/20 (MEDICAID REPLACEMENT - HMO) Heaven Montoya [id number] Heaven Montoya 10/08/2024 1 [facility] ON OR AFTER 12/02/20 (MEDICAID REPLACEMENT - HMO) Heaven Montoya [id number] Heaven Montoya Notes Date Note Type Note Provider Name and Address Organization Details Recorded Time 10/23/2023 text/html here to [facility], here with sisters, has a referral to recruitment specialist, had a bunch of tests done, kidney function is fifty one percent, aunt with breast cancer, has mammogram scheduled for January, lesions on face, appointment with steamboat captain, needs a spacer for inhaler because does not uses it right, has not had a PAP since in her twenties, did have many sexual partners a long time ago but it has been quite some time, likes to be out in the sun, has some cognitive impairments so sisters help with her care, Roxanne Anderson MD Attn: Accounting,[address] , [place], [address], [facility] 11/07/2023 14:39:43 01/22/2024 text/html saw recruitment specialist , has stage 3 kidney disease, takes Vitamin D once a week, takes another Vitamin once a day, aspirin q d, no history of heart disease, sometimes throws up during the night, gasps during the night, always tired, saw steamboat captain and had facial lesion removed, gets pain in right hip, Roxanne Anderson MD Attn: Accounting, [address] [facility], [place], [address], [facility] 01/27/2024 12:22:16 06/30/2024 text/html follow up, went to Dr. Bennett for kidneys, did not end up seeing him because they passed her up and then he was rude, need labs from Dr. Bennett, will set up for PT after this, set up for in house sleep study, episodes of dizziness, one episode of double vision, one on top of the other, lasted seconds or minutes, no issues with speech, no headaches, no weakness, felt like could pass out, has never passed out, does not drink much water at all and eats a lot of sugar foods, has had intermittent dizziness for years, sometimes it is spinning and sometimes it is not, no chest pain Roxanne Anderson MD Attn: Accounting, [address] [facility], [place], [address], [facility] 06/30/2024 18:52:33 07/14/2024 text/html has had cough an d congestion for a week now, cough is getting worse, history of COPD, not short of breath, ear pain Roxanne Anderson MD Attn: Accounting, [address] [facility], [place], [address], [facility] 07/21/2024 11:12:09 10/08/2024 text/html follow up, now h as right hip pain and left leg, went to physical therapy for right hip, made leg stronger but continues with pain, sudden episodes of pain with certain sudden movements, on right side pain is not as bad as on left, left side pain is in thigh and not in hip area, no back pain, legs don't give out, no knee pain, family feels she needs assistance at home because one sister who helps out is having surgery herself and the other sister lives in [place] and does not have the financial and physical means to help out, they are going to check with her insurance to see what might be available, appointment with Dr. Bennett in November Roxanne Anderson MD Attn: Accounting, [address] [facility], [place], [address], [place] [facility] 10/08/2024 18:09:24 OBGyn Episode No OBEpisode recorded.
--- OUTSIDE RECORDS SUMMARY | 2024-10-13 14:37 | XMS_ITS | Data Portability ---
Author Organization [place] [facility], Main Office Address [address] [place] [address] Assessment Encounter Date Assessment Date Assessment LastModified by Organization Details LastModified Time 05/26/2024 05/26/2024 Assessment: Hypertension Moderate OSAHS, AHI = 19 PLMD Hypoventilation Plan: The following were reviewed and explained to the patient: primary care/referral note [facility] home sleep study 05/14/24 AHI = 19, supine AHI = 44 General information on sleep disordered breathing, evaluation of sleep disordered breathing, treatment with PAP therapy, and living with PAP therapy were covered. PSG is medically necessary to determine the management of sleep apnea. We discussed with the patient the impact of weight on: Sleep disordered breathing Mixed hyperlipidemia Hypertension GILMAR CKD Urge urinary incontinence We discussed with the patient the benefit of PAP therapy on: Sleep disordered breathing Depression/Anxiet y Rhinitis Hypertension GILMAR CKD Urge urinary incontinence Educated the patient on sleep hygiene measures. Relaxing rituals to rest easy, understanding foods with positive and negative impact on sleep, creating a peaceful sleep environment, timing of exercise, using herbal sleep aids, and practicing sleep-friendly meditation were covered. To determine how much sleep is needed, the patient will assess where she falls on the spectrum, examine what lifestyle factors such as work schedules and stress are affecting the quality and quantity of sleep. In general, adults need 7-9 hours of sleep. Educated the patient regarding foods that promote sleep. These include but are not limited to cherries, bananas, toast, oatmeal, and warm milk. Educated the patient regarding foods and drinks to avoid before bedtime. These include but are not limited to aged cheese, chocolate, spicy foods, tomato-based sauces, soy, ginseng tea and processed meat. Advocated influenza vaccination annually and pneumonia vaccination KELLEN. Advocated weight loss through diet and exercise. Patient's ideal body weight according to height and gender is up to 145 lbs. Encouraged patient to adjust caloric intake to maintain/achieve ideal body weight, emphasizing on fruits, vegetables, whole grains, and fat-free or low-fat products. These include lean meats, poultry, fish, beans, eggs, and nuts and foods that are low in saturated fats, trans-fats, cholesterol, salt (sodium), and glycemic index. Stressed the importance of regular exercise up to the patient's capacity limits. In this case, we recommend 20 min daily walking, 2 days a week of resistance training. Patient to monitor BP daily and bring records to PCP for further management. Follow-up: 1 week after titration sleep study Not available 05/26/2024 12:44:24 Plan of Treatment Reminders Order Date Submit Date Provider Last Modified By Organization Details Last Modified Time Details Appointments None recorded. Lab None recorded. Referral None recorded. Procedures None recorded. Surgeries None recorded. Imaging polysomnog stephany, titration study - Please call patient to schedule. 2023 024 [email or web address] [facility], [address] [place], [address], 5 18:25:34 Medication Orders None recorded. Patient TargetsNo targets recorded. Patient InstructionsNo instructions recorded. Reason for Referral None Reported. Results Created Date Observation Date Name Description Value Unit Range Abnormal Flag Note LastModifiedBy Organization Detail LastModifiedTime 05/19/20 24 05/14/2024 home sleep study No observ ation record ed. [facility] Not Available 2023 17:27:01 Result Notes None recorded. Problems Name Problem SNOMED Code Status Onset Date Resolution Date Notes Provider Name and Address Organization Details Recorded Time Obstructive sleep apnea syndrome 62386079 Active 024 Madi Mahmood MD [address] [facility], [address], [place], [address] , [facility] 4 12:40:13 Notes:Medical History: Acroc hordon Nicotine use Depression/Anxiety Rhinitis Obesity with mod OSAHS, AHI = 19, 05/14/24 Hypothyroidism Mixed hyperlipidemia Hypertension GILMAR Stage 3 CKD Urge urinary incontinence Vit B12 deficiency Vit D deficiency Procedure History: T&A 1962 Appendectomy 1983 Tubal ligation 1983 Cholecystectomy 1997 Occupational History: Disabled Problem Notes None recorded. Procedures Surgical History Date Name Laterality Status Provider Name and Address Organization Details Recorded Time Tubal Ligation completed Luisa Lester MA [facility] 05/26/2024 11:40:26 Cholecystectomy completed Luisa Lester MA [facility] 05/26/2024 11:40:33 Tonsillectomy completed Luisa Lester MA [facility] 05/26/2024 11:40:48 Imaging Results Imaging Date Name Status LastModified by Organiz ation Details LastModified Time 05/14/2024 home sleep study completed [facility] Information not available 05/19/2024 17:27:01 Procedure Notes None recorded. Medical Equipment None Reported. Allergies No known drug allergies Medications Name Sig Start Date Stop Date Status Note LastModified by Organization Details LastModified Time losartan 50 mg tablet TAKE 1 TABLET BY MOUTH EVERY DAY IN THE MORNING active Not Available Not Available No t Available levothyroxi ne 137 mcg tablet TAKE 1 TABLET BY MOUTH EVERY DAY active Not Available Not Available No t Available albuterol sulfate 2.5 mg/3 mL (0.083 %) solution for nebulizatio n USE 3 ML VIA NEBULIZER THREE TIMES DAILY DIRECTED active Not Available Not Available No t Available citalopram 40 mg tablet TAKE 1 TABLET BY MOUTH EVERY DAY active Not Available Not Available No t Available pravastatin 40 mg tablet TAKE 1 TABLET BY MOUTH EVERY DAY AT BEDTIME active Not Available Not Available No t Available tretinoin 0.025 % topical cream active Not Available Not Available Not Available omeprazole 20 mg capsule,del ayed release TAKE 1 CAPSULE BY MOUTH EVERY DAY active Not Available Not Available No t Available ergocalcife rol (vitamin D2) 1,250 mcg (50,000 unit) capsule TAKE 1 CAPSULE BY MOUTH 1 TIME A WEEK 05/26 completed Not Available Not Available Not Available albuterol sulfate HFA 90 mcg/actuati on aerosol inhaler INHALE 2 PUFFS BY MOUTH FOUR TIMES DAILY NEEDED RESCUE ONLY active Not Available Not Available No t Available calcitriol 0.25 mcg capsule TAKE 1 CAPSULE BY MOUTH DAILY 05/26 completed Not Available Not Available Not Available fenofibrate 160 mg tablet TAKE 1 TABLET BY MOUTH EVERY MORNING 05/26 completed Not Available Not Available Not Available Symbicort 160 mcg-4.5 mcg/actuati on HFA aerosol inhaler INHALE 2 PUFFS BY MOUTH TWICE DAILY DIRECTED active Not Available Not Available No t Available fenofibrate 54 mg tablet TAKE 1 TABLET BY MOUTH EVERY DAY active Not Available Not Available No t Available ProChamber USE DIRECTED active Not Available Not Available No t Available Vitals Date Recorded Body height Body mass index (BMI) Body weight Body temperature Oxygen saturation Oxygen saturation in Arterial blood by Pulse oximetry Systolic blood pressure Diastolic blood pressure Provider Name and Address Organization Details Last Updated DateTime 170.18 cm 25.5 kg/m2 08275.5 6 g 98.3 [degF] 97 % 97 % 146 mm[Hg] 74 mm[Hg] Luisa Lester MA [employer] [facility] 11:35:57 Date Recorded Heart rate Heart rate Respiratory rate Provider Name and Address Organization Details Last Updated DateTime 05/26/2024 63 /min 63 /min 15 /min Madi Mahmood MD [address] [place] [address], [address], [facility] 05/26/2024 12:19:57 Social History Question Answer Notes LastModified by Organizat ion Details LastModified Time Tobacco Smoking Status Current Every Day Smoker Luisa Lester MA [facility] [employer] [facility] 05/26/2024 11:39:18 What Is Your Level Of Caffeine Consumption? Heavy Information not available 05/26/2024 Do You Have An Electrostatic Air Filter? No Information not available 05/26/2024 Do You Have A Humidifier? No Information not available 05/26/2024 Where Do You Live? Apartment Inform ation not available 05/26/2024 Do You Have Moisture Problems In Your Home? No Information not available 05/26/2024 What Was The Date Of Your Most Recent Tobacco Screening? 05/26/2024 Information not available 05/26/2024 How Many Children Do You Have? 0 Information not available 05/26/2024 Do You Have Any Pets? No Information not available 05/26/2024 What Is Your Relationship Status? Single Information not available 05/26/2024 Do You Use Your Seat Belt Or Car Seat Routinely? Yes Information not available 05/26/2024 Do You Have Smoke And Carbon Monoxide Detectors In Your Home? Yes Information not available 05/26/2024 At What Age Did You Start Smoking Tobacco? 17 Information not available 05/26/2024 Are You Passively Exposed To Smoke? Yes Information no t available 05/26/2024 How Much Tobacco Do You Smoke? 1 PPD Information not available 05/26/2024 Do You Use Sunscreen Routinely? No Information not available 05/26/2024 Sex: Unknown Functional Status Question Answer Note LastModified by Organizat ion Details LastModified Time Do you use any illicit or recreational drugs? No Information not available 05/26/2024 Do you or have you ever used any other forms of tobacco or nicotine? No Information not available 05/26/2024 What is your level of alcohol consumption? None Information not available 05/26/2024 Are you currently employed? No Information not available 05/26/2024 Have you been exposed to chemicals or toxins? No Not that aware of Information not available 05/26/2024 Mental Status Question Answer Note LastModified by Organization D etails LastModified Time Do you feel stressed (tense, restless, nervous, or anxious, or unable to sleep at night)? [id number] Information not available 05/26/2024 Family History Relationship Description Onset Age of this Age Resolved Age Notes LastModified by Organization Details LastModified Time Mother Diabetes mellitus Not available 2023 17:21:52 Mother Disorder of thyroid gland Not available 2023 17:22:01 Mother Hypertensive disorder Not available 2023 17:22:08 Mother Hypercholest erolemia Not available 2023 17:22:21 Mother Obstructive sleep apnea syndrome Not available 2023 12:21:40 Mother Gallstone Not available 05/26/2024 12:29:04 Sister Obstructive sleep apnea syndrome Not available 2023 12:21:45 Sister Gallstone Not available 05/26/2024 12:29:09 Sister Common variable agammaglobul inemia Not available 2023 12:32:50 Sister Hypertensive disorder Not available 2023 12:33:16 Sister Glaucoma Not available 1 07/27/2023 12:33:55 Maternal Grandfather Chronic obstructive pulmonary disease Not available 2023 12:27:31 Maternal Grandfather Malignant neoplasm of lung Not available 2023 12:27:42 Maternal Grandmother Cerebrovascu lar accident Not available 12:27:57 Maternal Grandmother Hypertensive disorder Not available 2023 12:28:01 Maternal Grandmother Hypercholest erolemia Not available 2023 12:28:09 Maternal Grandmother Cardiac pacemaker in situ Not available 2023 12:28:18 Maternal Grandmother Gallstone Not available 05/05 12:28:54 Maternal Aunt Obstructive sleep apnea syndrome Not available 2023 12:28:41 Maternal Aunt Gallstone Not niyah ilable 05/26/2024 12:29:01 Father Malignant neoplasm of urinary bladder Not available 2023 12:31:12 Medical History No medical history recorded. Gynecological HistoryNo gynecological history recorded. Obstetrics History GPAL:G 0 P 0 0 0 0 Past Encounters Encounter ID Performer Location Encounter Start Date Encounter Closed Date Diagnosis/Indication Diagnosis SNOMED-CT Code Diagnosis ICD10 Code Diagnosis Note [id number] Madi Mahmood MD [facility] [address] [address] 05/26/2024 11:13:44 06/02/2024 11:39:14 Obstructive sleep apnea syndrome 79779777 G47.33 G47.30 G47.36 G47.61 Health Concerns Section Related Observation LastModified by Organization Detai ls LastModified Time None Recorded Concern Status LastModified by Organization Details LastModified Time None Recorded Advance Directives Directive None Recorded Payers Encounter Date Sequence Insurance Name Policy Number Policy Clifford Covered Member ID Clifford Member ID Guarantor Name 05/26/2024 1 [facility] ON OR AFTER 12/02/20 (MEDICAID REPLACEMENT - HMO) Heaven Montoya [id number] Heaven Montoya Notes Date Note Type Note Provider Name and Address Organization Details Recorded Time 05/26/2024 text/html Primary care/Ref erring provider: Roxanne Anderson MD During the [facility] home sleep study on 05/14/24, AHI = 19, supine AHI = 44. At home, the patient sleeps from 12 am to 9 am and wakes up without an alarm. Snoring: moderate, since 1960s. Snorting: yes Choking: yes Coughing: yes Gasping: yes Gagging: yes Sighing: yes Witnessed apnea: yes Twitching or jerking of leg(s), arm(s), body, head: yes Teeth grinding: n/a Teeth clenching: n/a Sleeptalking: no Sleepwalking: no Sleep crying: yes Bedwetting: no Tongue/lip/gum/cheek biting: no Sleeping with open mouth: yes Sleep paralysis: no Hypnagogic hallucinations: no Hypnopompic hallucinations: no Vivid dreams: yes Difficulty with sleep onset: no Difficulty with sleep maintenance: yes Sleep interruptions: nocturia x 3 Patient wakes up with: fatigue, xerostomia, hoarse voice, headachesDaytime cataplexy: no Morning hypersomnolence: yes Afternoon hypersomnolence: yes Caffeine sources in diet: coffee 12 cups per day, soda 1/3 can per day, chocolate 1 candy bar per week Associated medical and psychiatric conditions: Congestive heart failure: no Coronary artery disease: no Myocardial infarction: no Hypertension: yes Stroke: no Bronchial asthma: no Chronic obstructive pulmonary disease: no Depression: yes Bipolar disorder: no Anxiety: yes Panic disorder: no Posttraumatic stress disorder: no Attention deficit and hyperactivity disorder: no Obsessive Compulsive disorder: no Schizophrenia: no Schizoaffective disorder: no Personality disorder: no Chronic analgesic use: no Chronic sedative/hypnotic use: no EPWORTH SLEEPINESS SCALE (ESS) CHANCE OF DOZING SCORE 0 = would never doze 1 = slight chance of dozing 2 = moderate chance of dozing 3 = high chance of dozing SITUATION AND CHANCE OF DOZING Sitting and reading - 1 Watching television - 2 Sitting inactive in a public place (e.g. a theater or meeting) - 2 As a passenger in a car for an hour without a break - 1 Lying down to rest in the afternoon when circumstances permit - 3 Sitting and talking to someone - 0 Sitting quietly after lunch without alcohol - 1 In a car, while stopped for a few minutes in the traffic - 0 TOTAL SCORE 10 Subjectively, patient has a moderate chance of dozing. Madi Mahmood MD [address] [facility], [place] [address], [place], [address], [place] [facility] 05/26/2024 12:45:20 OBGyn Episode No OBEpisode recorded.
== END 2024-10-13 14:32 | disposition home or self-care (01) ==
PROVIDERS: PCP Internal Medicine; Visit Provider Emergency Medicine
DX: M89.8X5 Other specified disorders of bone, thigh (principal)
CPT/HCPCS: 73552